=== PATIENT | male | born 1955 | race Caucasian/White ===

== ENCOUNTER → 2021-01-21 08:25 | Outpatient (CLI) | payer MEDICARE, OTHER, SELFPAY ==
[2021-01-21 09:23] LABS: COVID19 -Nasal RAPID Negative (Negative)
== END ==
PROVIDERS: Nurse Practitioner; Visit Provider Internal Medicine
DX: Z20.822 Contact with and (suspected) exposure to COVID-19 (principal)
CPT/HCPCS: 87635

== ENCOUNTER → 2021-01-21 10:17 | Outpatient (CLI) | payer MEDICARE, OTHER, SELFPAY ==
--- NOTE | 2021-01-21 | DI.NM.S_ITS ---
PROCEDURE: NM AZ PERF SPECT REST & STR Rest and exercise myocardial perfusion SPECT with gated imaging and ejection fraction RADIOPHARMACEUTICAL: 25.4 mCi Tc-99m sestamibi IV at rest and 25.1 mCi Tc-99m sestamibi IV at peak exercise. A two day-protocol was performed. INDICATIONS: Dyspnea, unspecified TECHNIQUE: Radiopharmaceutical was injected at peak stress test, and also at rest. SPECT images were obtained. SPECT myocardial perfusion images were displayed in short axis, horizontal long axis, and vertical long axis views. Gated images were reviewed using [employer] software. COMPARISON: None. CARDIAC STRESS: A standard Renato treadmill exercise tolerance test was performed by the patient under the supervision of an attending staff. The patient exercised for 3 minutes and 46 seconds; functional aerobic impairment (COLLINS) is +43%. Hemodynamic data: There is normal blood pressure and heart rate response to exercise stress. Patient achieved 82% of maximum predicted heart rate at peak exercise. Patient's oxygen saturation dropped to 75% during stage 1. Symptoms: Patient denied chest pain during exercise. EKG: No diagnostic EKG changes of ischemia; frequent PVCs with exercise and during recovery. FINDINGS: Raw data: There is good myocardial labeling by radiotracer. No significant motion artifacts. Ckjk-ln-msjit ratio is 0.35 (normal is less than 0.38 for sestamibi tracer, and less than 0.50 for thallium tracer). Left ventricle function: Gated images demonstrate normal left ventricle wall thickening. No segmental wall motion abnormality. No transient ischemic dilation; TID is 0.91 (normal less than 1.3). The left ventricle resting end-diastolic volume is 123 mL. Left ventricle stress ejection fraction is 66%; normal values are above 45%. Myocardial perfusion: There is normal distribution of activity in the left and right ventricular myocardium. No fixed or reversible perfusion defects. IMPRESSION: Low risk, normal treadmill (slightly submaximal) nuclear stress test from ischemia standpoint. Hypoxia during first stage of stress test 1) No perfusion evidence of ischemia or infarction. 2) Normal left ventricular size, wall motion, and systolic function (EF post stress 66%). 3) No ECG evidence of ischemia. 4) Frequent PVCs with exercise and during recovery. 5) Reduced exercise tolerance (4.6 METs, COLLINS +43%). Slightly submaximal study as 82% of maximum predicted heart rate reached. Appropriate BP response to exercise. 6) Oxygen saturation dropped to 75% during stage 1 that quickly improved during recovery. 7) No prior nuclear stress test available for comparison. Dictated by: Timbo Rodney MD on 01/22/2021 at 16:50 Approved by: Timbo Rodney MD on 01/22/2021 at 16:56
--- NOTE | 2021-01-30 09:45 | PM.PFT.1 ---
Pulmonary Function Test Referral & Results Date Patient Seen: 01/21/21 Requesting provider: Hector Ordonez Results: The spirometry demonstrates an FVC of 2.64 L which is 53% of predicted. The FEV1 was measured at 2.10 L which is 57% of predicted. The FEV1/FVC ratio was 80 which is 107% of predicted. Following the administration of bronchodilator there was no appreciable change Lung volumes show an SVC of 2.57 L which is 52% of predicted. The diffusing capacity was measured at 10.55 which is 30% of predicted. No hemoglobin value was provided, so no correction for potential anemia could be made, if appropriate. The maximum voluntary ventilation was reduced Interpretation: This study demonstrates possibly mild obstructive lung disease based on reduction FEV1 although FEV1/FVC ratio is preserved. There is also mild reduction in lung volumes suggestive restrictive lung disease present as well which may explain the abnormality in FEV1. There is a much more severe reduction diffusing capacity suggesting significant disease at the capillary alveolar level to the point where patient may well be a hypoxic at times on room air Clinical correlation suggested
== END ==
PROVIDERS: PCP Student in an Organized Health Care Education/Training Program; Referring Provider Student in an Organized Health Care Education/Training Program; Visit Provider Student in an Organized Health Care Education/Training Program
DX: R06.02 Shortness of breath (principal); Z87.891 Personal history of nicotine dependence; J98.8 Other specified respiratory disorders; Z20.822 Contact with and (suspected) exposure to COVID-19
CPT/HCPCS: 78452; 87635; 93017; 94060; 94726; 94729; 99281; C9803; A9502

== ENCOUNTER → 2021-02-24 10:09 | Outpatient (CLI) | payer MEDICARE, OTHER, SELFPAY ==
--- NOTE | 2021-02-24 11:08 | RT ---
Patient had ambulation test. Results are scanned into chart. Had to stop test twice due to safety concerns. Patient with low sats despite oxygen. Advised patient this is dangerous and it needs to be addressed quickly. Patient left on own recognisance. Tried to contact provider before patient left at phone number provided on order but nurse line rang with no answer. Tried a different number found on the internet after patient left and was able to talk to human resources receptionist who took a message and is giving it to Dr. Tracey's nurse.
== END ==
PROVIDERS: PCP Student in an Organized Health Care Education/Training Program; Referring Provider Internal Medicine Pulmonary Disease; Visit Provider Internal Medicine Pulmonary Disease
DX: J84.9 Interstitial pulmonary disease, unspecified (principal); R06.02 Shortness of breath
CPT/HCPCS: 94618

== ENCOUNTER 2021-08-23 10:15 | Outpatient (RCR) | payer MEDICARE, OTHER, SELFPAY | END 2021-08-23 15:15 | LOC: PUL 10:15 | PROVIDERS: PCP Student in an Organized Health Care Education/Training Program; Referring Provider Student in an Organized Health Care Education/Training Program; Visit Provider Student in an Organized Health Care Education/Training Program | DX: J84.89 Other specified interstitial pulmonary diseases (principal) | CPT/HCPCS: G0237; G0238 ==